=== PATIENT | male | born 1965 | race Two or more races ===

== ENCOUNTER 2024-06-29 13:15 | Emergency (ER) | payer SELFPAY ==
[~2024-06-29] VITALS: Ht 172.7 cm; Wt 84.6 kg
--- NOTE | 2024-06-29 14:44 | DVH ---
CLINICAL INDICATION: injury TECHNIQUE: 4 radiographic views of the right 2nd finger were obtained. Comparison: None FINDINGS/IMPRESSION: There is acute comminuted mildly displaced fracture of the distal part of the 2nd digit distal phalan x with associated soft tissue edema, wound and overlying metallic densities which may represent forei gn bodies. Additional punctate focus of metallic foreign body noted overlying the distal part of the 3rd digit.
--- NOTE | 2024-06-29 14:44 | ED.PDOC ---
HPI Comments 59 y.o male presents to the ED for an evaluation of a laceration to the right index digit. Patient reports using a saw yesterday evening, states it bounced back and sliced his right index finger causing multiple small jagged lacerations. Patient states he wrapped finger at home but it continued to bleed up until today and decided to come in for further evaluation. Patient is not up to date with tetanus vaccine. He denies any numbness, weakness, fever or chills. Chief Complaint: Laceration Time Seen by MD: 13:43 Primary Care Provider: NONE Reviewed Notes: Nurses Notes, Medications, Allergies Allergies: Coded Allergies: NO KNOWN ALLERGIES (Unverified , 06/29/24) Information Source: Patient Mode of Arrival: Ambulatory Severity: Moderate Severity of Laceration: Controlled Bleeding Complexity: Intermediate Timing: Days (1) Laceration Location: Digit #2 Mechanism: Other (saw) Laceration Length (cm): 1 Skin Type: Jagged Depth of Injury: Skin Tender: Moderate Discharge: None Associated Signs and Symptoms: None Past Medical History PAST MEDICAL HISTORY: Denies Surgical History: Denies all surgeries Family History Family History: Reviewed,noncontributory to illness Social History Smoker: Non-Smoker Alcohol: Occasionally Drugs: Denies Drug Use Lives In: Home Constitutional: denies: chills, diaphoresis, fatigue, fever, malaise, sweats, weakness, others EENTM: denies: blurred vision, double vision, ear bleeding, ear discharge, ear drainage, ear pain, ear ringing, eye pain, eye redness, hearing loss, mouth pain, mouth swelling, nasal discharge, nose bleeding, nose congestion, nose pain, photophobia, tearing, throat pain, throat swelling, voice changes, others Respiratory: denies: cough, hemoptysis, orthopnea, SOB at rest, shortness of breath, SOB with excertion, stridor, wheezing, others Cardiovascular: denies: chest pain, dizzy spells, diaphoresis, Dyspnea on exertion, edema, irregular heart beat, left arm pain, lightheadedness, p alpitations, PND, syncope, others Gastrointestinal: denies: abdomen distended, abdominal pain, blood streaked bowels, constipated, diarrhea, dysphagia, difficulty swallowing, hematemesis, melena, nausea, poor appetite, poor fluid intake, rectal bleeding, rectal pain, vomiting, others Neurological: denies: dizziness, fainting, headache, left sided numbness, left sided weakness, numbness, paresthesia, pre-existing deficit, right sided numbness, right sided weakness, seizure, speech problems, tingling, tremors, weakness, others Musculoskeletal: denies: back pain, gout, joint pain, joint swelling, muscle pain, muscle stiffness, neck pain, others Integumetry: reports: laceration (right index ); denies: bruises, change in color, change in hair/nails, dryness, lesions, lumps, rash, wounds, others Allergic/Immunocompromised: denies: Difficulty Healing, Frequent Infections, Hives, Itching, others Hematologic/Lymphatic: denies: anemia, blood clots, easy bleeding, easy bruising, swollen glands, others Endocrine: denies: excessive hunger, excessive sweating, excessive thirst, excessive urination, flushing, intolerance to cold, intolerance to heat, unexplained weight gain, unexplained weight loss, others Psychiatric: denies: anxiety, bipolar disorder, depression, hopeless, panic disorder, schizophrenia, sleepless, suicidal, others All Other Systems: Reviewed and Negative Physical Exam General Appearance: No Apparent Distress, Normal HEENT: Normal ENT Inspection, Pharynx Normal, TMs Normal Neck: Full Range of Motion, Non-Tender, Normal, Normal Inspection Respiratory: Chest Non-Tender, Lungs Clear, No Accessory Muscle Use, No Respiratory Distress, Normal Breath Sounds Cardiovascular: No Edema, No JVD, No Murmur, No Gallop, Normal Peripheral Pulses, Regular Rate/Rhythm Breast Exam: Deferred Gastrointestinal: No Organomegaly, Non Tender, No Pulsatile Mass, Normal Bowel Sounds, Soft Genitalia: Deferred Pelvic: Deferred Rectal: Deferred Extremities: No calf tenderness, Normal capillary refill, Normal inspection, Normal range of motion, Non-tender, No pedal edema Musculoskeletal : Apperance: Normal Neurologic: Alert, switchboard and control room operator II-XII nml as Tested, No Motor Deficits, Normal Affect, Normal Mood, No Sensory Deficits Cerebellar Function: Normal Reflexes: Normal Skin: Lacerations (right index distal multiple jagged lacerations. no active bleeding, No swelling, No deformity, No open wound, No tendon injury ) Lymphatic: No Adenopathy Was a procedure done? Was a procedure done?: Yes Sedation Sedation?: No Informed consent obtained: Yes Other Procedure Procedure finger splint Indication fracture Informed consent obtained: Yes Risks, benefits, and alternati: Yes Differential diagnosis Generic Laceration: Fracture, Retained Foriegn Body, Neurovascular Injury, Tendon Injury, Abrasion/Contusion, Laceration, Avulsion, Amputation X-Ray, Labs, Meds, VS Vital Signs Date Time Temp Pulse Resp B/P (MAP) Pulse Ox O2 Delivery O2 Flow Rate FiO2 06/29/24 13:43 97.0 97 17 152/94 (113) 97 Time of 1ST Reevaluation: 14:37 Reevaluation 1ST: Unchanged Patient Education/Counseling: Diagnosis, Treatment, Prognosis, Need For Follow Up Family Education/Counseling: No Family Present Additional Information Previous visit documents reviewed: The following tests were ordered, and results were reviewed by me: Right index X ray, PHA Additional Information was gathered from interviewing the following independent historians: None I reviewed and agreed with the following test results read by other providers: X ray I discussed treatment and results with medical personnel and: patient although pt has lacerations and tuft fracture, the wound appears clean and only the tip of the finger is involved. he will be placed on antibiotic, return for recheck in 24-18 hours i also ordered a finger splint to protect the tip from additional trauma Departure 1 Departure Time of Disposition: 15:33 Impression: Primary Impression: Finger laceration Qualified Codes: S61.320A - Laceration with foreign body of right index finger with damage to nail, initial encounter Additional Impression: Closed fracture of tuft of distal phalanx of finger Disposition: 01 HOME / SELF CARE / HOMELESS Condition: Stable e-Prescriptions Cephalexin Monohydrate (Cephalexin) 500 Mg Tab 500 MG PO QID for 10 Days, #40 TAB Prov: EMILY BENJAMIN MD 06/29/24 Hydrocodone-Acetaminophen (Hydrocodone Bitartrate/AC 5-325 mg) 1 Tab Tab 1 TAB PO Q8HP PRN for 3 Days, #9 TAB Prov: EMILY BENJAMIN MD 06/29/24 Discharged With: Self Critical Care Note Critical Care Time?: No Stability Stability form required: No I personally scribed for EMILY BENJAMIN MD ([email or web address]) on 06/29/24 at 14:44. Electronically submitted by Precious Jensen ([facility]). EMILY BENJAMIN MD Jun 29, 2024 14:44
[2024-06-29] MEDS ORDERED: HYDR-4902 PO (15:35)
[2024-06-29] MEDS ORDERED: CEPH500T PO (15:35)
[2024-06-29 15:45] VITALS: BP 150/88; PULSE 97; RESP 17; TEMP 97.5; O2SAT 98
[2024-06-29] MEDS: TETANUS-DIPTH-ACEL PERTUSSIS 0.5ML SYR Tdap IM ONE (15:54)
[2024-06-29] MEDS: CEPHALEXIN 250 MG CAP PO ONE (15:54)
[2024-06-29] MEDS: HYDROcodone-ACET 5/325MG TAB PO ONE (15:54)
== END 2024-06-29 16:09 | disposition home or self-care (01) ==
LOC: ER 13:15
DX: S61.210A Laceration without foreign body of right index finger without damage to nail, initial encounter (principal); X58.XXXA Exposure to other specified factors, initial encounter; Y93.89 Activity, other specified; Y92.89 Other specified places as the place of occurrence of the external cause; Y99.8 Other external cause status
CPT/HCPCS: 29130; 73140; 90471; 90715